=== PATIENT | female | born 1945 | race Caucasian/White ===

== ENCOUNTER 2017-11-18 22:34 | Inpatient (IN) | payer MEDICARE, OTHER ==
[~2017-11-18] VITALS: Ht 167.6 cm; Wt 87.7 kg
--- NOTE | 2017-11-18 22:45 | NUR ---
PT BIBRA FROM HOME TO ER BED 12 C/O DIFFUSE ABDOMINAL PAIN WORST TO LOWER ABDOMEN. 1 EPISODE OF VOMITING EARLIER BUT DENIES NAUSEA AT THIS TIME. PLACED ON MONITOR. STABLE VITALS. AWAITING MD PEARCE.
--- NOTE | 2017-11-18 22:51 | NUR ---
DR MARIE AT BEDSIDE FOR EVAL.
[2017-11-18] MEDS ORDERED: ONDANSETRON HCL/PF 4 MG/2 ML VIAL ONE (22:53)
[2017-11-18] MEDS ORDERED: MORPHINE SULFATE INJ 4 MG/ML DISP.SYRIN ONE (22:54)
[2017-11-18] MEDS ORDERED: IV NS 0.9% 1,000 ML BAG IV ONE (23:00)
[2017-11-18] MEDS ORDERED: ONDANSETRON HCL/PF 4 MG/2 ML VIAL IVP ONE (23:00)
[2017-11-18] MEDS ORDERED: MORPHINE SULFATE INJ 2 MG/ML DISP.SYRIN IV ONE (23:00)
[2017-11-18 23:12] LABS: BASOPHILS # (AUTO) 0.1 /CMM (0.0-0.2); BASOPHILS % (AUTO) 0.5 % (0.0-2.0); EOSINOPHILS % (AUTO) 1.2 % (0.0-6.0); HEMATOCRIT 40 % (33-45); HEMOGLOBIN 13.4 g/dL (11.5-14.8); LYMPHOCYTES # (AUTO) 1.4 /CMM (0.8-4.8); LYMPHOCYTES % (AUTO) 8.9 % (20.0-44.0); MEAN CORPUSCULAR HEMOGLOBIN 27 PG (26.0-33.0); MEAN CORPUSCULAR HGB CONC 34 g/dl (31.0-36.0); MEAN CORPUSCULAR VOLUME 79 fL (82-100); MONOCYTES # (AUTO) 0.6 /CMM (0.1-1.30); MONOCYTES % (AUTO) 3.5 % (2.0-12.0); NEUTROPHILS % (AUTO) 85.9 % (43.0-81.0); PLATELET COUNT (AUTO) 271 /CMM (150-450); RDW COEFFICIENT OF VARIATION 12.6 (11.5-15.0); RED BLOOD CELL COUNT(AUTO) 5.02 MIL/uL (4.0-5.2); WHITE BLOOD COUNT (AUTO) 16.3 K/uL (4.3-11.0)
--- NOTE | 2017-11-18 23:19 | NUR ---
PT TO RADIOLOGY FOR ABDOMINAL CT SCAN VIA [facility].
[2017-11-18 23:30] LABS: CALCIUM, SERUM 9.7 mg/dL (8.5-10.1); CARBON DIOXIDE 25 mmol/L (21-32); CHLORIDE 102 mmol/L (98-107); GLUCOSE 132 mg/dL (74-106); POTASSIUM 3.9 mmol/L (3.5-5.1); SODIUM SERUM 138 mmol/L (136-145); UREA NITROGEN, BLOOD 42 mg/dL (7-18)
[2017-11-18 23:32] LABS: INR 0.93 (0.87-1.13)
[2017-11-18 23:35] LABS: ALANINE AMINOTRANSFERASE 29 U/L (12-78); ALKALINE PHOSPHATASE 89 U/L (46-116); ASPARTATE AMINOTRANSFERASE 24 U/L (15-37); BILIRUBIN,DIRECT 0.1 mg/dL (0.0-0.2); BILIRUBIN,TOTAL 0.2 mg/dL (0.2-1.0); LIPASE 272 U/L (73-393); TOTAL PROTEIN, SERUM 7.8 g/dL (6.4-8.2)
[2017-11-18 23:36] LABS: TROPONIN I < 0.017 ng/mL (0.00-0.056)
--- NOTE | 2017-11-18 23:47 | NUR ---
REPORT TO CHARGE NURSE JESUS FOR PRIYA.
[2017-11-19 00:01] LABS: APPEARANCE,URINE CLEAR (CLEAR); BILIRUBIN,URINE NEGATIVE (NEGATIVE); BLOOD, URINE TRACE Ery/uL (NEGATIVE); COLOR,URINE YELLOW (YELLOW); KETONES,URINE NEGATIVE (NEGATIVE); LEUKOCYTE ESTERASE ,URINE NEGATIVE (NEGATIVE); NITRITE, URINE NEGATIVE (NEGATIVE); PH,URINE 5.5 (5.0-8.0); PROTEIN,URINE NEGATIVE (NEGATIVE); UGLUCOSE NEGATIVE (NEGATIVE); UROBILINOGEN,URINE 0.2 EU/dL (0.2)
[2017-11-19 00:13] LABS: BACTERIA,URINE None seen /HPF (None Seen); RBC,URINE 0-2 /HPF (0-2); SQUAMOUS EPITHELIAL CELL,UR Few /HPF (None Seen); WBC,URINE 0-2 /HPF (0-3)
[2017-11-19] MEDS ORDERED: MORPHINE SULFATE INJ 4 MG/ML DISP.SYRIN ONE ×2 (00:44→01:27)
[2017-11-19] MEDS ORDERED: MORPHINE SULFATE INJ 2 MG/ML DISP.SYRIN IV ONE ×2 (01:00→01:30)
[2017-11-19] MEDS ORDERED: LIDOCAINE VISCOUS 2% UD 15 ML UDC ONE (01:00)
[2017-11-19] MEDS ORDERED: LIDOCAINE VISCOUS 2% UD 15 ML UDC MM ONE (01:00)
--- NOTE | 2017-11-19 01:20 | NUR ---
14 FR NG TUBE INSERTED, @ 65CM. PLACEMENT CONFIRMED WITH SEBASTIAN LOMBARDO.
[2017-11-19] MEDS ORDERED: ACETAMINOPHEN 650 MG/SUPP.RECT RC PRN (01:30)
[2017-11-19] MEDS ORDERED: MORPHINE SULFATE INJ 2 MG/ML DISP.SYRIN IV PRN (01:30)
[2017-11-19] MEDS ORDERED: ONDANSETRON HCL/PF 4 MG/2 ML VIAL IVP PRN (01:30)
--- NOTE | 2017-11-19 01:31 | NUR ---
REPORT GIVEN TO WILLIAM LOMBARDO FOR PRIYA
[2017-11-19 02:25] VITALS: BP 149/73
--- NOTE | 2017-11-19 02:30 | NUR ---
PT TRANSFERED TO VIA [facility].
--- NOTE | 2017-11-19 03:00 | NUR ---
TELE/RN OPENING NOTES PT RECEIVED TO UNIT VIA VITOR FROM ER. A/OX4. CURRENTLY ON ROOM AIR, BREATHING EVEN AND UNLABORED. DENIES SOB, N/V AT THIS TIME. C/O ABDOMINAL PAIN 10/16, RECENTLY RECEIVED MORPHINE IV IN ER. IV TO LEFT HAND PATENT AND INTACT. PLACED ON TELE MONITOR, SR 80'S. NGT TO LEFT NARE IN PLACE. ORIENTED PT TO ROOM AND CALL LIGHT. BED IN LOW/LOCKED POSITION, SIDE RAILS UPX2. WILL CONTINUE TO MONITOR
[2017-11-19] MEDS: IV D5/0.45 NACL 1,000 ML IV PRN ×2 (03:12→18:21)
[2017-11-19] MEDS ORDERED: PIPERACILLIN /TAZOBACTAM 3.375 G in IV D5W 50 ML IV SCH (05:00)
[2017-11-19 06:22] LABS: BASOPHILS % (AUTO) 0.1 % (0.0-2.0); EOSINOPHILS % (AUTO) 0.4 % (0.0-6.0); HEMATOCRIT 36 % (33-45); HEMOGLOBIN 12.4 g/dL (11.5-14.8); LYMPHOCYTES # (AUTO) 0.9 /CMM (0.8-4.8); LYMPHOCYTES % (AUTO) 7.2 % (20.0-44.0); MEAN CORPUSCULAR HEMOGLOBIN 28 PG (26.0-33.0); MEAN CORPUSCULAR HGB CONC 35 g/dl (31.0-36.0); MEAN CORPUSCULAR VOLUME 79 fL (82-100); MONOCYTES # (AUTO) 0.5 /CMM (0.1-1.30); MONOCYTES % (AUTO) 4.2 % (2.0-12.0); NEUTROPHILS # (AUTO) 11.4 /CMM (1.8-8.9); NEUTROPHILS % (AUTO) 88.1 % (43.0-81.0); PLATELET COUNT (AUTO) 239 /CMM (150-450); RDW COEFFICIENT OF VARIATION 12.6 (11.5-15.0); RED BLOOD CELL COUNT(AUTO) 4.51 MIL/uL (4.0-5.2); WHITE BLOOD COUNT (AUTO) 12.9 K/uL (4.3-11.0)
[2017-11-19 06:31] LABS: ALANINE AMINOTRANSFERASE 25 U/L (12-78); ALBUMIN 3.3 g/dL (3.4-5.0); ALKALINE PHOSPHATASE 74 U/L (46-116); ASPARTATE AMINOTRANSFERASE 23 U/L (15-37); BILIRUBIN,TOTAL 0.2 mg/dL (0.2-1.0); CALCIUM, SERUM 8.5 mg/dL (8.5-10.1); CARBON DIOXIDE 25 mmol/L (21-32); CHLORIDE 106 mmol/L (98-107); CREATININE 0.9 mg/dL (0.6-1.3); GLUCOSE 153 mg/dL (74-106); MAGNESIUM 1.9 mg/dL (1.8-2.4); PHOSPHORUS 3.5 mg/dL (2.5-4.9); POTASSIUM 4.4 mmol/L (3.5-5.1); SODIUM SERUM 139 mmol/L (136-145); TOTAL PROTEIN, SERUM 6.8 g/dL (6.4-8.2); UREA NITROGEN, BLOOD 34 mg/dL (7-18)
[2017-11-19] MEDS ORDERED: PIPERACILLIN /TAZOBACTAM 3.375 G VIAL IV ONE (07:01)
--- NOTE | 2017-11-19 07:01 | NUR ---
DOCUMENTED NON-ADMINISTERED TO RID OF THE RED REMINDER.
--- NOTE | 2017-11-19 07:15 | NUR ---
TELE/RN CLOSING NOTES PT RESTING COMFORTABLY IN BED, WITH EYES CLOSED, EASILY AROUSABLE. A/OX4. ON ROOM AIR, BREATHING EVEN AND UNLABORED. NO SOB OR DISTRESS NOTED. NO C/O NAUSEA OR PAIN AT THIS TIME. TELE MONITOR SHOWING SR 63. IV TO LEFT HAND PATENT AND INTACT RUNNING IVF ORDERED. NGT TO LEFT NARE ON LOW INTERMITTENT SUCTION WITH REDDISH BROWN OUTPUT 150CC. ALL NEEDS MET. BED REMAINS IN LOW/LOCKED POSITION WITH CALL LIGHT IN REACH. SIDE RAILS UPX2. ENDORSED TO DAY SHIFT RN PRIYA.
--- NOTE | 2017-11-19 07:25 | NUR ---
MS RN OPENING NOTE RECEIVED BEDSIDE SBAR REPORT ON THE PATIENT. PATIENT IS A/O X4, ASLEEP, AWAKEN EASILY IN BED. BED IS LOCKED IN LOWEST POSITION, SIDE RAILS UP X2,BED ALARM IS ON. PATIENT IS AMBULATORY WITH ASSIST. CALL LIGHT WITHIN REACH. EDUCATED THE PATIENT TO CALL FOR ASSISTANCE USING THE CALL LIGHT. PATIENT VERBALIZED UNDERSTANDING. CHEST RISING EQUALLY, BILATERALLY. SPO2 94% ON RA. VS WNL. LEFT NARE NGT PRESENT ON LOW INTERMITTENT SUCTION ORDERED. PATIENT IS NPO. DENIES PAIN/DISCOMFORT AT THIS TIME. WILL CONTINUE TO ASSESS/MONITOR THROUGHOUT THE SHIFT.
[2017-11-19 08:00] VITALS: BP 128/77
[2017-11-19] MEDS ORDERED: ESCI10TA PO (09:24)
--- NOTE | 2017-11-19 11:16 | NUR ---
Patient complained of abdominal pain rating 8/10. Morphine administered as prescribed
[2017-11-19] MEDS: PIPERACILLIN /TAZOBACTAM 3.375 G in IV D5W 50 ML IV SCH ×2 (13:41→18:23)
--- NOTE | 2017-11-19 14:41 | NUR ---
Patient stated that she wants to be transferred to [facility] to undergo a surgery there under a care of a doctor that she has been seeing for years. Patient stated "I trust my doctor, I will do the surgery if he tells me I need it". Charge nurse Tamar informed. Andres Linares informed.
[2017-11-19 16:00] VITALS: BP 126/72
--- NOTE | 2017-11-19 17:58 | NUR ---
Met with patient,she is alert and pleasant.She lives locally with ,daughter and family in a single level home. She is ambulatory and independent with adl's prior to admit. Has no DME or homehealth reported. Patient pcp is Dr. Palomares of [facility]. She plan to return home upon discharge. Addendum: 11/19/17 at 1759 by CALVIN HANCOCK RN Amended: Links added.
--- NOTE | 2017-11-19 18:40 | NUR ---
MS RN CLOSING NOTE PATIENT IS A/O X4, AWAKE AND RESPONSIVE IN BED. FAMILY AT THE BEDSIDE. BED IS LOCKED IN LOWEST POSITION, SIDE RAILS UP X2,BED ALARM IS ON. PATIENT IS AMBULATORY WITH ASSIST. BEDSIDE COMMODE AT THE SIDE OF THE BED. CALL LIGHT WITHIN REACH. EDUCATED THE PATIENT TO CALL FOR ASSISTANCE USING THE CALL LIGHT. PATIENT VERBALIZED UNDERSTANDING. CHEST RISING EQUALLY, BILATERALLY. SPO2 96% ON RA. VS WNL. LEFT NARE NGT PRESENT ON LOW INTERMITTENT SUCTION ORDERED (66). PATIENT IS NPO. DENIES PAIN/DISCOMFORT AT THIS TIME. WILL ENDORSE TO THE RUG DRYING MACHINE OPERATOR NURSE FOR PRIYA.
--- NOTE | 2017-11-19 19:00 | NUR ---
MS RN OPENING NOTE RECEIVE PATIENT AWAKE IN BED, A/O X4,STABLE NO FACIAL GRIMACING NOTED FOR PAIN. NO SOB OR DISTRESS NOTED, CALL LIGHT WITHIN REACH. SAFETY MEASURES IMPLEMENTED. WILL CONTINUE TO MONITOR THROUGHOUT SHIFT.
[2017-11-19 20:00] VITALS: BP 124/63
[2017-11-20] MEDS: PIPERACILLIN /TAZOBACTAM 3.375 G in IV D5W 50 ML IV SCH ×4 (00:15→19:55)
[2017-11-20] MEDS: IV D5/0.45 NACL 1,000 ML IV PRN (06:00)
--- NOTE | 2017-11-20 06:21 | NUR ---
MS RN CLOSING NOTES PT COMFORTABLY ASLEEP AND EASILY AWAKEN, A/O X 4, TOLERATING ROOM AIR 98%, ON NGT L NARES LOW INTERMITTENT SUCTION. RESPIRATION EVEN AND UNLABORED. KEPT CLEAN AND DRY AND COMFORTABLE, ALL NURSING CARE RENDERED. NEEDS ATTENDED AND ANTICIPATED, GOOD SKIN CARE PROVIDED. ON LOW BED AT ALL TIMES TO ENSURE SAFETY. SAFE HAZARD FREE ENVIRONMENT PROVIDED. NO COMPLAINS OF PAIN. CALL LIGHT WITHIN EASY TO REACH. WILL ENDORSE NEXT SHIFT CONTINUITY OF CARE
--- NOTE | 2017-11-20 07:16 | NUR ---
RN OPENING NOTES RECEIVED PATIENT IN BED ASLEEP, EASILY AWAKEN, A/O X 4, TOLERATING ROOM AIR 96%, ON NGT L NARES LOW INTERMITTENT SUCTION, BROWNISH OUTPUT. NO ACUTE DISTRESS, NO SOB. NO COMPLAINTS OF PAIN. KEPT CLEAN AND DRY AND COMFORTABLE. SAFE HAZARD FREE ENVIRONMENT PROVIDED. BED IN LOW/LOCKED POSITION, SIDERAILS UPX2, SEMIFOWLERS POSITION. CALL LIGHT IN REACH. WILL CONTINUE TO MONIOTR ACCORDINGLY.
[2017-11-20 08:00] VITALS: BP 149/65
[2017-11-20 08:06] LABS: CALCIUM, SERUM 8.5 mg/dL (8.5-10.1); CARBON DIOXIDE 27 mmol/L (21-32); CHLORIDE 110 mmol/L (98-107); CREATININE 0.8 mg/dL (0.6-1.3); GLUCOSE 113 mg/dL (74-106); HEMATOCRIT 38 % (33-45); HEMOGLOBIN 12.3 g/dL (11.5-14.8); MEAN CORPUSCULAR VOLUME 81 fL (82-100); PHOSPHORUS 3.2 mg/dL (2.5-4.9); POTASSIUM 3.7 mmol/L (3.5-5.1); RED BLOOD CELL COUNT(AUTO) 4.67 MIL/uL (4.0-5.2); SODIUM SERUM 143 mmol/L (136-145); UREA NITROGEN, BLOOD 18 mg/dL (7-18)
[2017-11-20 08:07] LABS: BASOPHILS % (AUTO) 1.1 % (0.0-2.0); EOSINOPHILS % (AUTO) 6.2 % (0.0-6.0); MEAN CORPUSCULAR HEMOGLOBIN 26 PG (26.0-33.0); MEAN CORPUSCULAR HGB CONC 33 g/dl (31.0-36.0); MONOCYTES % (AUTO) 7.8 % (2.0-12.0); NEUTROPHILS % (AUTO) 70.9 % (43.0-81.0); PLATELET COUNT (AUTO) 243 /CMM (150-450); RDW COEFFICIENT OF VARIATION 14.1 (11.5-15.0)
--- NOTE | 2017-11-20 14:21 | NUR ---
Bri Linares NP at bedside talking to patient. Advance diet as tolerated per ALEXANDRA Gregory
--- NOTE | 2017-11-20 14:22 | NUR ---
RN NOTES Clamped NGT per Bri Linares NP order. Will continue to monitor accordingly
[2017-11-20 16:00] VITALS: BP 139/68
[2017-11-20] MEDS ORDERED: METR500T PO (16:31)
--- NOTE | 2017-11-20 19:21 | NUR ---
RN CLOSING NOTES PATIENT IN STABLE CONDITION. ALL NEEDS ATTENDED AND PROVIDED. NGT CLAMPED ORDERED. KEPT PATIENT SAFE AND COMFORTABLE. BED IN LOW/LOCKED POSITION, SIDERAILS UPX2, CALL LIGHT IN REACH. ENDORSED TO NIGHT RN FOR PRIYA.
--- NOTE | 2017-11-20 19:30 | NUR ---
MS/RN OPENING NOTES PT RECEIVED AWAKE, HOB ELEVATED. ON ROOM AIR, BREATHING EVEN AND UNLABORED. DENIES SOB, PAIN, N/V AT THIS TIME. NGT TO LEFT NARE CURRENTLY CLAMPED. IV TO LEFT HAND PATENT AND INTACT RUNNING IVF ORDERED. BED IN LOW/LOCKED POSITION WITH CALL LIGHT IN REACH. SIDE RAILS UPX2. WILL CONTINUE TO MONITOR
[2017-11-20 20:00] VITALS: BP 164/80
[2017-11-20] MEDS: ACETAMINOPHEN 325 MG TABLET PO PRN (20:09)
--- NOTE | 2017-11-20 20:15 | NUR ---
MS/RN NOTES DR. SOTO AT BEDSIDE TO ASSESS PT. CHECKED TO SEE IF PT HAS ANY RESIDUAL VIA NGT, LITTLE BROWNISH / RED OUTPUT NOTED. PT CURRENTLY EATING A RED POPSICLE. WITH VERBAL ORDERS TO REMOVE NGT. Addendum: 11/20/17 at 2030 by WILLIAM GONZALEZ RN NGT REMOVED. PT TOLERATED WELL.
[2017-11-20 21:00] VITALS: BP 145/69
[2017-11-21] MEDS: IV D5/0.45 NACL 1,000 ML IV PRN (01:29)
[2017-11-21] MEDS: PIPERACILLIN /TAZOBACTAM 3.375 G in IV D5W 50 ML IV SCH ×2 (01:29→06:57)
[2017-11-21] MEDS ORDERED: diphenhydrAMINE HCL 50 MG/ML VIAL IV PRN (04:30)
--- NOTE | 2017-11-21 04:37 | NUR ---
MS/RN NOTES PT C/O GENERALIZED ITCHING. DR. MONTALVO WITH ORDERS FOR BENADRYL 25MG IV Q6H PRN, ORDERS READBACK PER PROTOCOL. ADMINISTERED ORDERED.
--- NOTE | 2017-11-21 06:44 | NUR ---
MS/RN CLOSING NOTES PT ASLEEP, EASILY AROUSABLE TO NAME. REMAINS ON ROOM AIR, BREATHING EVEN AND UNLABORED. DENIES SOB, PAIN, N/V THROUGHOUT SHIFT. SLEPT WELL DURING SHIFT. IV TO LEFT HAND RUNNING IVF ORDERED. PER PT, HAD SMALL BM LAST NIGHT. NO SIGNIFICANT CHANGES OVERNIGHT. KEPT PT COMFORTABLE DURING SHIFT. ALL NEEDS MET. BED REMAINS IN LOW/LOCKED POSITION WITH ALL LIGHT IN REACH. SIDE RAILS UPX2. WILL ENDORSE TO DAY SHIFT RN .
--- NOTE | 2017-11-21 07:15 | NUR ---
RN OPENING NOTES RECEIVED PATIENT IN BED ASLEEP, EASILY AWAKEN, A/O X 4. NO ACUTE DISTRESS, NO SOB. NO COMPLAINTS OF PAIN. KEPT CLEAN AND DRY AND COMFORTABLE. SAFE HAZARD FREE ENVIRONMENT PROVIDED. BED IN LOW/LOCKED POSITION, SIDERAILS UPX2, SEMIFOWLERS POSITION. CALL LIGHT IN REACH. WILL CONTINUE TO MONITOR ACCORDINGLY.
[2017-11-21 08:25] VITALS: BP 139/70
[2017-11-21] MEDS: ACETAMINOPHEN 325 MG TABLET PO PRN (08:53)
--- NOTE | 2017-11-21 12:34 | NUR ---
DISCHARGE NOTES DISCHARGED PATIENT IN STABLE CONDITION, PICKED UP BY FAMILY, ACCOMPANIED BY CHERYL SUN AT THE LOBBY. DISCHARGE INSTRUCTIONS GIVEN, VERBALIZED UNDERSTANDING. PRESCRIPTION AND PAPERWORK GIVEN. ALL BELONGINGS RETURNED, FROM SIGNED. REMOVED IV, APPLIED PRESSURE, NO BLEEDING, NO COMPLICATION. REMOVED NAME BAND.
== END 2017-11-21 13:08 | disposition home or self-care (01) | DRG 389 ==
LOC: ER 22:36 → MED 11-19 01:37 → TELE 11-19 06:10 → MED 11-19 09:06
PROVIDERS: ADMIT Nurse Practitioner Acute Care; ATTEND Nurse Practitioner Acute Care
DX: K56.50 Intestinal adhesions [bands], unspecified as to partial versus complete obstruction (principal); E44.1 Mild protein-calorie malnutrition; K51.90 Ulcerative colitis, unspecified, without complications; E66.01 Morbid (severe) obesity due to excess calories; D35.02 Benign neoplasm of left adrenal gland; E86.0 Dehydration; Z85.820 Personal history of malignant melanoma of skin; Z90.710 Acquired absence of both cervix and uterus; Z79.899 Other long term (current) drug therapy; Z68.31 Body mass index [BMI] 31.0-31.9, adult; F32.9 Major depressive disorder, single episode, unspecified
CPT/HCPCS: 36415; 71045-TC; 74018; 80048-TC; 80053-TC; 80076-TC; 81000-TC; 83605-TC; 83690-TC; 83735-TC; 84100-TC; 84484-TC; 85025-TC; 85730-TC; 87081-TC; A4606; J1200; J2270; J2405; J2543; J3490; J7030; J7060; Z7610